=== PATIENT | female | born 1985 | race Caucasian/White ===

== ENCOUNTER 2018-12-23 22:29 | Emergency (ER) | payer SELFPAY ==
[~2018-12-23] VITALS: Ht 157.5 cm; Wt 105.0 kg
[2018-12-23 22:32] VITALS: Ht 157.5 cm; Wt 105.0 kg
[2018-12-23] MEDS ORDERED: IPRATROPIUM (NEB) 0.5 MG/2.5 ML AMP NEB STA (22:56)
[2018-12-23] MEDS ORDERED: ALBUTEROL 0.083% (NEB) 2.5 MG/3 ML AMP NEB STA (22:56)
[2018-12-23] MEDS ORDERED: predniSONE 20 MG TAB PO STA (22:56)
[2018-12-24] MEDS ORDERED: PRED20TA PO (00:56)
[2018-12-24] MEDS ORDERED: D-ME118S24 PO (00:56)
[2018-12-24 01:00] VITALS: BP 132/65; PULSE 90; RESP 18
--- NOTE | 2018-12-24 01:01 | ERD ---
ER Documentation Chief Complaint Chief Complaint R SIDE CWP X'S 2 DAYS, COUGH X'S 3 DAYS HPI 33-year-old female past medical history of asthma presents for cough x3 days. She states that she has some pain on the right side of her chest with the cough. Also been having mild shortness of breath as well as subjective fever and runny nose. She denies abdominal pain, nausea, vomiting. She states that her cough is productive of greenish phlegm. She uses albuterol as needed for her asthma symptoms however states that the medication has not been helping. No other modifying factors noted. No other treatments tried at home. ROS All systems reviewed and are negative except as per history of present illness. Medications Home Meds Active Scripts D-Methorphan Hb/P-Epd HCl/Bpm (Cpwemcknma-Qbptxwekpqb-Eb Syr) 118 Ml Syrup, 5 ML PO Q4H PRN for COUGH for 10 Days, #1 BOTTLE Prov:KAMILLA DANIEL DO 12/24/18 Prednisone* (Prednisone*) 20 Mg Tab, 40 MG PO DAILY for asthma for 3 Days, #6 TAB Prov:KAMILLA DANIEL DO 12/24/18 Allergies Allergies: Coded Allergies: No Known Allergy (Unverified , 12/23/18) PMhx/Soc Medical and Surgical Hx: pt denies Medical Hx, pt denies Surgical Hx Hx Alcohol Use: No Hx Substance Use: No Hx Tobacco Use: No Smoking Status: Never smoker FmHx Family History: No coronary disease Physical Exam Vitals Vital Signs Date Temp Pulse Resp B/P (MAP) Pulse Ox O2 O2 Flow FiO2 Time Delivery Rate 12/23/18 96 20 97 21 23:12 12/23/18 99.2 91 18 146/68 97 22:32 (94) Physical Exam Const: No acute distress Head: Atraumatic Eyes: Normal Conjunctiva ENT: Normal External Ears, bilateral tympanic membrane intact without erythem a or bulging noted, nose and Mouth examination normal, no tonsillar swelling or exudate noted Neck: Full range of motion. No meningismus. Resp: Bilateral lower lobe wheezing noted, normal respiratory effort, no use of accessory muscles Cardio: Regular rate and rhythm, no murmurs Skin: No petechiae or rashes Ext: No cyanosis, or edema Neur: Awake and alert Psych: Normal Mood and Affect Results 24 hrs Current Medications Medications Dose Sig/Aneta Start Time Status Last (Trade) Ordered Route PRN Stop Time Admin Dose Reason Admin Albuterol 5 mg ONCE STAT 12/23/18 DC 12/23/18 (Proventil NEB 22:56 12/23/18 23:11 0.083% (Neb)) 22:59 Ipratropium 0.5 mg ONCE STAT 12/23/18 DC 12/23/18 [place] NEB 22:56 12/23/18 23:11 (Atrovent 22:59 0.02% (Neb)) Prednisone 40 mg ONCE STAT 12/23/18 DC 12/23/18 (Prednisone) PO 22:56 12/23/18 23:02 22:59 Procedures/MDM Medical Decision Making: Differential diagnosis includes but not limited to upper respiratory infection, pneumonia, sepsis, meningitis, influenza, asthma exacerbation Patient appeared well on physical examination, nontoxic appearing. Lungs were clear to auscultation bilaterally. There is low suspicion for pneumonia, sepsis, meningitis. Patient likely has an upper respiratory infection, likely viral. Therefore antibiotics not indicated. Patient's viral URI likely the cause of patient's asthma exacerbation Discussed symptomatic treatment with patient who agrees with plan. ER course Patient was given breathing treatment and steroid in the ER with relief of symptoms. Patient given prescription for supportive medication(s) including oral steroids and Bromfed. Patient advised to use her albuterol inhaler [id number] for 1 to 2 days until symptoms improve at which time she may start using it as needed. Patient advised to follow up with PCP in 1-2 days. Patient advised to return to ED for new or worsening symptoms. Patient stable on discharge from the ED. Disclaimer: Inadvertent spelling and grammatical errors are likely due to EHR/dictation software use and do not reflect on the overall quality of patient care. Also, please note that the electronic time recorded on this note does not necessarily reflect the actual time of the patient encounter. Departure Diagnosis: Primary Impression: Asthma exacerbation Asthma severity: mild Asthma persistence: unspecified Qualified Codes: J45.901 - Unspecified asthma with (acute) exacerbation Condition: Fair Patient Instructions: Asthma Medications Referrals: [facility] YOU HAVE RECEIVED A MEDICAL SCREENING EXAM AND THE RESULTS INDICATE THAT YOU DO NOT HAVE A CONDITION THAT REQUIRES URGENT TREATMENT IN THE EMERGENCY DEPARTMENT. FURTHER EVALUATION AND TREATMENT OF YOUR CONDITION CAN WAIT UNTIL YOU ARE SEEN IN YOUR DOCTORS OFFICE WITHIN THE NEXT 1-2 DAYS. IT IS YOUR RESPONSIBILITY TO MAKE AN APPOINTMENT FOR FOLOW-UP CARE. IF YOU HAVE A PRIMARY DOCTOR --you should call your primary doctor and schedule an appointment IF YOU DO NOT HAVE A PRIMARY DOCTOR YOU CAN CALL OUR PHYSICIAN REFERRAL HOTLINE AT IF YOU CAN NOT AFFORD TO SEE A PHYSICIAN YOU CAN CHOSE FROM THE FOLLOWING [facility] [address] [facility] [address] [address] [facility] [address] [facility]. [facility] [address], [facility]. [facility]. [address] Additional Instructions: Call your primary care doctor TOMORROW for an appointment during the next 1-2 days.See the doctor sooner or return here if your condition worsens before your appointment time. KAMILLA DANIEL DO Dec 24, 2018 01:01
== END 2018-12-24 01:00 | disposition home or self-care (01) ==
LOC: FTE 22:29
DX: J45.901 Unspecified asthma with (acute) exacerbation (principal)
CPT/HCPCS: 71046; 94664; 99283; J7512